=== PATIENT | female | born 1940 | race Caucasian/White ===

== ENCOUNTER → 2016-12-05 | Outpatient (CLI) | payer MEDICARE, OTHER ==
[2016-12-05 14:44] LABS: ABSOLUTE BASOPHILS # (AUTO) 0.1 10^3/uL (0.0-0.2); ABSOLUTE EOSINOPHILS # (AUTO) 0.5 10^3/uL (0.0-0.6); ABSOLUTE LYMPHOCYTES (AUTO) 2.5 10^3/uL (0.5-4.7); ABSOLUTE MONOCYTES (AUTO) 0.8 10^3/uL (0.1-1.4); ABSOLUTE NEUT (AUTO) 5.5 10^3/uL (1.7-8.2); BASOPHILS % (AUTO) 0.9 % (0-2); EOSINOPHILS % (AUTO) 5.8 % (0-6); HEMATOCRIT 33.4 % (36.0-47.0); HEMOGLOBIN 11.4 g/dL (12.0-15.5); HGB HCT DIFFERENCE 0.8; LYMPHOCYTES % (AUTO) 26.2 % (13-45); MEAN CORPUSCULAR HEMOGLOBIN 29.6 pg (27.0-33.4); MEAN CORPUSCULAR VOLUME 87 fl (80-97); MONOCYTES % (AUTO) 8.8 % (3-13); RED BLOOD COUNT 3.84 10^6/uL (3.72-5.28); RED CELL DISTRIBUTION WIDTH 13.7 % (11.5-14.0); SEGMENTED NEUTROPHILS % (AUTO) 58.3 % (42-78); WHITE BLOOD COUNT 9.4 10^3/uL (4.0-10.5)
[2016-12-05 14:45] LABS: APPEARANCE,URINE CLEAR; BILIRUBIN,URINE NEGATIVE (NEGATIVE); GLUCOSE, URINE NEGATIVE (NEGATIVE); KETONES,URINE NEGATIVE (NEGATIVE); LEUKOCYTE ESTERASE,URINE SMALL (NEGATIVE); NITRITE,URINE NEGATIVE (NEGATIVE); PROTEIN,URINE NEGATIVE (NEGATIVE); URINE SPECIFIC GRAVITY 1.006; UROBILINOGEN,URINE NEGATIVE mg/dL (<2.0)
[2016-12-05 14:50] LABS: PARTIAL THROMBOPLASTIN TIME 30.9 SEC (23.5-35.8); PROTHROMBIN TIME 12.7 SEC (11.4-15.4)
== END ==
LOC: OD 12:53
PROVIDERS: ATTEND Student in an Organized Health Care Education/Training Program
DX: Z51.81 Encounter for therapeutic drug level monitoring (principal); Z79.01 Long term (current) use of anticoagulants
CPT/HCPCS: 36415; 81001; 85025; 85610; 85730

== ENCOUNTER 2016-12-10 08:42 | Day surgery (SDC) | payer MEDICARE, OTHER ==
[~2016-12-10 08:42] MED LIST: CEFAZOLIN 1 GM/D5W RTU 1 GM/50 ML RTUPB IV PRN; RINGERS SOLUTION,LACTATED 1,000 ML IV PRN
[2016-12-10] MEDS ORDERED: LIDOCAINE 1% INJ-PF (10 MG/ML) 30 ML SDV ONE (09:22)
[2016-12-10 09:28] LABS: HEMATOCRIT 35.8 % (36.0-47.0); HEMOGLOBIN 11.8 g/dL (12.0-15.5); HGB HCT DIFFERENCE -0.4; MEAN CORPUSCULAR HGB CONC 33.1 g/dL (32.0-36.0); MEAN CORPUSCULAR VOLUME 88 fl (80-97); RED BLOOD COUNT 4.08 10^6/uL (3.72-5.28); RED CELL DISTRIBUTION WIDTH 13.2 % (11.5-14.0); WHITE BLOOD COUNT 7.2 10^3/uL (4.0-10.5)
[2016-12-10 09:40] LABS: APPEARANCE,URINE CLEAR; BILIRUBIN,URINE NEGATIVE (NEGATIVE); GLUCOSE, URINE NEGATIVE (NEGATIVE); KETONES,URINE NEGATIVE (NEGATIVE); LEUKOCYTE ESTERASE,URINE TRACE (NEGATIVE); NITRITE,URINE NEGATIVE (NEGATIVE); PROTEIN,URINE NEGATIVE (NEGATIVE); URINE SPECIFIC GRAVITY 1.009; UROBILINOGEN,URINE NEGATIVE mg/dL (<2.0)
[2016-12-10] MEDS ORDERED: CEFAZOLIN 1 GM/D5W RTU 1 GM/50 ML RTUPB IV ONE (09:52)
[2016-12-10 10:24] LABS: PARTIAL THROMBOPLASTIN TIME 29.3 SEC (23.5-35.8)
[2016-12-10 10:28] LABS: PROTHROMBIN TIME 13.4 SEC (11.4-15.4)
[2016-12-10] MEDS ORDERED: MIDAZOLAM 2 MG/2 ML INJ ONE (10:57)
[2016-12-10] MEDS ORDERED: KETAMINE HCL INJ 500 MG/10 ML VIAL ONE (10:57)
[2016-12-10] MEDS ORDERED: FENTANYL CITRATE INJ/PF 100 MCG/2 ML AMPUL ONE ×2 (10:57→12:52)
[2016-12-10] MEDS ORDERED: PROPOFOL INJ 200 MG/20 ML VIAL IV ONE (10:58)
[2016-12-10] MEDS ORDERED: EPHEDRINE SULFATE INJ 50 MG/1 ML AMPULE ONE (10:58)
[2016-12-10] MEDS ORDERED: PROPRANOLOL HCL 40 MG TABLET PO ONE (11:00)
[2016-12-10] MEDS ORDERED: FAMOTIDINE INJ/PF 20 MG/2 ML SDV IV ONE ×3 (11:30→11:31)
[2016-12-10] MEDS ORDERED: PROMETHAZINE HCL INJ 25 MG/1 ML VIAL IV PRN (12:14)
[2016-12-10] MEDS ORDERED: DIPHENHYDRAMINE HCL 50 MG/ML VIAL IV PRN (12:14)
[2016-12-10] MEDS ORDERED: MORPHINE SULFATE 10 MG/ML INJ IV PRN (12:14)
[2016-12-10] MEDS ORDERED: FENTANYL CITRATE INJ/PF 100 MCG/2 ML AMPUL IV PRN ×3 (12:14)
[2016-12-10] MEDS ORDERED: OXYCODONE-ACETAMINOPHEN 5-325 MG TABLET PO PRN (12:51)
--- NOTE | 2016-12-10 12:58 | OPERATIVE REPORT E ---
Operative Report NAME: DAKOTA KHAN : 1940 AGE: 76Y DATE OF SURGERY: 12/10/2016 ROOM: PREOPERATIVE DIAGNOSIS: L1 vertebral compression fracture. POSTOPERATIVE DIAGNOSIS: L1 vertebral compression fracture. PROCEDURE: Balloon kyphoplasty. SURGEON: JANAE SCHWARZ M.D. ELECTRONIC TRANSACTION IMPLEMENTER: None. ANESTHESIA: MAC. COMPLICATIONS: None. PROCEDURE IN DETAIL: After obtaining informed consent advising the patient of the risks and benefits, including serious neurological injury, bleeding, infection, paralysis, allergic reaction, , and failure to adequately treat pain, she was taken to the operating room suite. She was placed comfortably in the prone position as determined by Anesthesia. She was prepped and draped. A C-arm was brought in for lateral and AP visualizations and draped appropriately. Beginning at the L1 level, using a right peripedicular approach, a suitable skin entry site was identified and anesthetized with 1% lidocaine. A small incision was made. The Express trocar was then advanced under serial fluoroscopy views in AP and lateral position, entering in the peripedicular approach and medializing after passing into the vertebral body to be positioned medial to the medial pedicular wall. The drill was then placed and removed followed by the balloon. This procedure was then repeated using the left peripedicular approach at the same vertebral levels. Once the balloons were adequately inflated cement was mixed, and using the filler tubes beginning at the L1 level, 2.4 mL of mixture was placed on the right side and 1 mL at the left. Intermittent fluoroscopy was used to confirm appropriate spread of cement. Stylettes were placed into the trocar after the filler tubes were all removed. Appropriate spread was obtained under serial fluoroscopy. The cement was allowed to harden prior to removing the trocars. The region was then cleansed. Sterile dressing was placed. The patient was taken to the PACU for further postoperative care and monitoring and will return to the clinic tomorrow for wound check. DICTATING PHYSICIAN: JANAE SCHWARZ M.D. [id number] PHY#: [id number] ID: [id number] JOB#: [id number] ACCT: [id number] cc:JANAE SCHWARZ M.D. > MTDD
[2016-12-10] MEDS ORDERED: CEFAZOLIN INJ 1 GM VIAL ONE (13:02)
[2016-12-10] MEDS ORDERED: ONDANSETRON HCL INJ/PF 4 MG/2 ML SDV ONE (15:27)
[2016-12-10] MEDS ORDERED: LIDOCAINE 2% INJ-PF (20 MG/ML) 10 ML AMPUL ONE (15:27)
--- NOTE | 2016-12-10 16:19 | RADIOLOGY REPORT (SQ) ---
EXAM DESCRIPTION: L SPINE 2 VIEWS; NO CHG FLUORO COMPLETED DATE/TIME: 12/10/2016 2:39 pm REASON FOR STUDY: KYPHOPLASTY L1 ASSISTED WITH FLUORO IN OR S32.010A WEDGE COMPRESSION FRACTURE OF FIRST LUMBAR VERTEBRA COMPARISON: None. FLUOROSCOPY TIME: 2.7 minutes 12 digital radiographic images saved to PACS. TECHNIQUE: Intra-operative images acquired during surgical procedure to evaluate progress. NUMBER OF IMAGES: Cine fluoroscopic images. LIMITATIONS: None. FINDINGS: Multiple fluoro images submitted during kyphoplasty in the OR. IMPRESSION: Intra procedural imaging and fluoro COMMENT: Quality ID 145: Final reports for procedures using fluoroscopy that document radiation exp osure indices, or exposure time and number of fluorographic images (if radiation exposure indices are not available) Please consult full operative report of the attending physician for description of the procedure. TECHNICAL DOCUMENTATION: JOB ID: [id number] [employer]- All Rights Reserved
[2016-12-10 16:32] VITALS: BP 139/80
== END 2016-12-10 16:15 | disposition home or self-care (01) ==
LOC: OROUT 08:42
PROVIDERS: ATTEND Student in an Organized Health Care Education/Training Program
PROC: 0QU03JZ Supplement Lumbar Vertebra with Synthetic Substitute, Percutaneous Approach (ICD-10-PCS; 2016-12-10)
PROC: 0QS03ZZ Reposition Lumbar Vertebra, Percutaneous Approach (ICD-10-PCS; principal; 2016-12-10 11:15)
DX: S32.010A Wedge compression fracture of first lumbar vertebra, initial encounter for closed fracture (principal); X58.XXXA Exposure to other specified factors, initial encounter; M54.16 Radiculopathy, lumbar region; E78.5 Hyperlipidemia, unspecified; I10 Essential (primary) hypertension; Z79.899 Other long term (current) drug therapy; Z79.82 Long term (current) use of aspirin; Z79.891 Long term (current) use of opiate analgesic; Z79.01 Long term (current) use of anticoagulants; J45.909 Unspecified asthma, uncomplicated; Z85.9 Personal history of malignant neoplasm, unspecified
CPT/HCPCS: 36415; 84132; 85027; 85610; 85730; 81001; 72100; 22514; Q9966; J2250; J0690 ×2; J3010; J3490 ×2; A9270; J2405; J2704; S0028; 1936

== ENCOUNTER 2018-02-16 07:16 | Day surgery (SDC) | payer MEDICARE, OTHER ==
[2018-02-10 11:36] LABS: ABSOLUTE BASOPHILS # (AUTO) 0.1 10^3/uL (0.0-0.2); ABSOLUTE EOSINOPHILS # (AUTO) 0.2 10^3/uL (0.0-0.6); ABSOLUTE LYMPHOCYTES (AUTO) 2.7 10^3/uL (0.5-4.7); ABSOLUTE MONOCYTES (AUTO) 0.6 10^3/uL (0.1-1.4); ABSOLUTE NEUT (AUTO) 5.6 10^3/uL (1.7-8.2); BASOPHILS % (AUTO) 0.7 % (0-2); EOSINOPHILS % (AUTO) 2.4 % (0-6); HEMATOCRIT 36.8 % (36.0-47.0); HEMOGLOBIN 12.5 g/dL (12.0-15.5); LYMPHOCYTES % (AUTO) 29.2 % (13-45); MEAN CORPUSCULAR HEMOGLOBIN 29.4 pg (27.0-33.4); MEAN CORPUSCULAR HGB CONC 34.1 g/dL (32.0-36.0); MEAN CORPUSCULAR VOLUME 86 fl (80-97); MONOCYTES % (AUTO) 6.8 % (3-13); PLATELET COUNT 215 10^3/uL (150-450); RED BLOOD COUNT 4.26 10^6/uL (3.72-5.28); RED CELL DISTRIBUTION WIDTH 14.5 % (11.5-14.0); SEGMENTED NEUTROPHILS % (AUTO) 60.9 % (42-78); TOTAL CELLS COUNTED % (AUTO) 100 %; WHITE BLOOD COUNT 9.2 10^3/uL (4.0-10.5)
[2018-02-10 11:45] LABS: INTERNATIONAL RATION (INR) 0.97; PROTHROMBIN TIME 13.4 SEC (11.4-15.4)
[2018-02-10 11:51] LABS: APPEARANCE,URINE SLIGHTLY-CLOUDY; BILIRUBIN,URINE NEGATIVE (NEGATIVE); COLOR,URINE YELLOW; GLUCOSE, URINE NEGATIVE (NEGATIVE); KETONES,URINE NEGATIVE (NEGATIVE); LEUKOCYTE ESTERASE,URINE SMALL (NEGATIVE); NITRITE,URINE NEGATIVE (NEGATIVE); PROTEIN,URINE NEGATIVE (NEGATIVE); UROBILINOGEN,URINE NEGATIVE mg/dL (<2.0)
[~2018-02-16 07:16] MED LIST changes: +LACTATED RINGERS 1000 ML IV PRN; +LIDOCAINE 0.5% INJ-PF (5 MG/ML) 50 ML SDV SUBCUT PRN; -RINGERS SOLUTION,LACTATED 1,000 ML IV PRN
[2018-02-16] MEDS ORDERED: CEFAZOLIN 1 GM/D5W RTU 1 GM/50 ML RTUPB IV ONE (07:25)
[2018-02-16] MEDS ORDERED: LIDOCAINE 1% INJ-PF (10 MG/ML) 30 ML SDV ONE (07:35)
[2018-02-16] MEDS ORDERED: ONDANSETRON HCL INJ/PF 4 MG/2 ML SDV ONE (08:09)
[2018-02-16] MEDS ORDERED: FAMOTIDINE INJ/PF 20 MG/2 ML SDV IV ONE (08:09)
[2018-02-16 08:16] LABS: ANION GAP 9 (5-19); BLOOD UREA NITROGEN 14 mg/dL (7-20); CALCIUM 9.7 mg/dL (8.4-10.2); CARBON DIOXIDE 29 mmol/L (22-30); CHLORIDE 104 mmol/L (98-107); GLUCOSE 111 mg/dL (75-110); POTASSIUM 3.9 mmol/L (3.6-5.0); SODIUM 141.8 mmol/L (137-145)
[2018-02-16] MEDS ORDERED: MIDAZOLAM 2 MG/2 ML INJ ONE (10:03)
[2018-02-16] MEDS ORDERED: FENTANYL CITRATE INJ/PF 100 MCG/2 ML AMPUL ONE (10:03)
[2018-02-16] MEDS ORDERED: PROPOFOL INJ 200 MG/20 ML VIAL IV ONE (10:03)
[2018-02-16] MEDS ORDERED: TRIAMCINOLONE ACETONIDE INJ 40 MG/1 ML VIAL ONE (10:19)
[2018-02-16] MEDS ORDERED: ONDANSETRON HCL INJ/PF 4 MG/2 ML SDV IV PRN ×2 (10:34→11:47)
[2018-02-16] MEDS ORDERED: DIPHENHYDRAMINE HCL 50 MG/ML VIAL IV PRN (10:34)
[2018-02-16] MEDS ORDERED: FENTANYL CITRATE INJ/PF 100 MCG/2 ML AMPUL IV PRN ×3 (10:34)
[2018-02-16] MEDS ORDERED: OXYCODONE HCL IR 5 MG TABLET PO PRN (11:46)
[2018-02-16] MEDS ORDERED: OXYCODONE HCL SR 10 MG TABLET PO ONE (12:09)
--- NOTE | 2018-02-16 12:11 | OPERATIVE REPORT E ---
Operative Report NAME: DAKOTA KHAN : 1940 AGE: 77Y DATE OF SURGERY: 02/16/2018 ROOM: PREOPERATIVE DIAGNOSIS: LUMBAR SPINAL STENOSIS WITH NEUROGENIC CLAUDICATION. POSTOPERATIVE DIAGNOSIS: LUMBAR SPINAL STENOSIS WITH NEUROGENIC CLAUDICATION. OPERATION: 1. Minimally invasive lumbar decompression at L3-L4 and L4-L5. 2. Epidural access at L4-L5 with epidural steroid injection with 80 mg of Kenalog. SURGEON: MENDY SAMANIEGO M.D. INTRAVENOUS ANTIBIOTICS: 1 gram Ancef given prior to incision. INTRAVENOUS FLUIDS: 500 mL of balanced crystalloid solution. COMPLICATIONS: Inadvertent dural puncture to L4-5 during epidural access. Myelogram noted. FINDINGS: Excellent removal of ligamentum flavum and tissue from the stenotic space of L3-L4 and L4-L5. SPECIMENS REMOVED: Ligamentum flavum which was discarded. INDICATIONS: The patient is a pleasant, 77-year-old female with lumbar spinal stenosis and neurogenic claudication. She has undergone a series of epidural injections with good result, though very short-lived. She continues to have issues with neurogenic claudication. She was determined to be a candidate for MILD. Risks and benefits were discussed with the patient in detail including but not limited to bleeding, bruising, infection, injury to nerves, arteries, veins, loss of bowel or bladder function, paralysis, headache, and potentially even . The patient expressed understanding. The patient agreed to proceed. OPERATIVE REPORT: The patient was accompanied by anesthesia staff to the operative suite. She was placed in prone position. All pressure points were checked and padded. Standard ASA lines and monitors were applied. The patient was prepped in sterile fashion using chlorhexidine solution and Ioban drape. The C-arm was also prepped into the field. AP and oblique fluoroscopic guidance was utilized to visualize the L3-4 and L4-5 interspace. The skin overlying the L4-5 interspace in the midline was marked and anesthetized with 1% lidocaine. A 17-gauge Tuohy was advanced under intermittent AP and oblique fluoroscopic guidance to the interlaminar space of L4-5. Loss of resistance was obtained using normal saline. Notably, aspiration was negative at this point. Contrast was injected and a myelogram was appreciated. As such, the needle was determined to be intradural. It was slightly withdrawn with epidural spread appreciated. At this juncture, an incision site was marked over the left S1 pedicle. The skin was anesthetized with 1% lidocaine and deeper tissues were infiltrated using the same with a 3.5 inch 25-gauge spinal needle. The trocar provided by the MILD kit was advanced under intermittent oblique fluoroscopic guidance to the L4-5 interspace between the lamina. This was secured using a securing device and a depth gauge was also placed over the trocar at 15 mm. A trocar was advanced under continuous fluoroscopic guidance and was utilized to remove segments of bone and ligament from the lamina, taking great care to not violate the epidural space. Once this was completed, a tissue sculptor was likewise utilized to remove further ligamentum flavum. At this point, after excellent tissue removal was noted, the trocar was slightly withdrawn and advanced to the L3-4 interspace where the procedure was performed in the exact same fashion using the bone rongeurs followed by the tissue sculptor. Attention was turned to the contralateral side and the procedure was performed in the exact same fashion on this side. Then 80 mg of Kenalog was injected into the epidural space following the procedure. All instrumentation was removed. Steri-Strips were placed and dressings were placed. The patient was accompanied to PACU in stable condition. She will be followed up in 24 hours for postop with a doctor with pain management. DICTATING PHYSICIAN: MENDY SAMANIEGO M.D. [id number] PHY#: [id number] ID: [id number] JOB#: [id number] ACCT: [id number] cc:MENDY SAMANIEGO M.D. >
[2018-02-16 13:28] VITALS: BP 144/53
--- NOTE | 2018-02-16 13:53 | RADIOLOGY REPORT (SQ) ---
EXAM DESCRIPTION: L SPINE 2 VIEWS; NO CHG FLUORO COMPLETED DATE/TIME: 02/16/2018 1:34 pm REASON FOR STUDY: MINIMALLY INVASIVE LUMBAR DECOMPRESSION ASST WITH FLUORO IN OR G89.4 CHRONIC PAIN SYNDROME M48.07 SPINAL STENOSIS, LUMBOSACRAL REGION Z79.01 MCC (CURRENT) USE OF ANTICOAGULAN TS COMPARISON: None. FLUOROSCOPY TIME: 11 minutes total fluoro time 17 digital radiographic images saved to PACS. TECHNIQUE: Intra-operative images acquired during surgical procedure to evaluate progress. NUMBER OF IMAGES: 17 digital images LIMITATIONS: None. FINDINGS: Intra procedural imaging and fluoro during procedure performed by Dr. Morrell. Please see her operative report for further details IMPRESSION: Intra procedural imaging and fluoro. 11 minutes total fluoro time COMMENT: Quality ID 145: Final reports for procedures using fluoroscopy that document radiation exp osure indices, or exposure time and number of fluorographic images (if radiation exposure indices are not available) Please consult full operative report of the attending physician for description of the procedure. TECHNICAL DOCUMENTATION: JOB ID: [id number] [employer]- All Rights Reserved Reading location - IP/workstation name: [email or web address]
--- NOTE | 2018-02-16 13:53 | RADIOLOGY REPORT (SQ) ---
EXAM DESCRIPTION: L SPINE 2 VIEWS; NO CHG FLUORO COMPLETED DATE/TIME: 02/16/2018 1:34 pm REASON FOR STUDY: MINIMALLY INVASIVE LUMBAR DECOMPRESSION ASST WITH FLUORO IN OR G89.4 CHRONIC PAIN SYNDROME M48.07 SPINAL STENOSIS, LUMBOSACRAL REGION Z79.01 HALFWAY (CURRENT) USE OF ANTICOAGULAN TS COMPARISON: None. FLUOROSCOPY TIME: 11 minutes total fluoro time 17 digital radiographic images saved to PACS. TECHNIQUE: Intra-operative images acquired during surgical procedure to evaluate progress. NUMBER OF IMAGES: 17 digital images LIMITATIONS: None. FINDINGS: Intra procedural imaging and fluoro during procedure performed by Dr. Morrell. Please see her operative report for further details IMPRESSION: Intra procedural imaging and fluoro. 11 minutes total fluoro time COMMENT: Quality ID 145: Final reports for procedures using fluoroscopy that document radiation exp osure indices, or exposure time and number of fluorographic images (if radiation exposure indices are not available) Please consult full operative report of the attending physician for description of the procedure. TECHNICAL DOCUMENTATION: JOB ID: [id number] [employer]- All Rights Reserved Reading location - IP/workstation name: [facility] [email or web address]
--- NOTE | 2018-02-16 15:48 | EKG REPORT ---
SEVERITY:- ABNORMAL ECG - SINUS RHYTHM MULTIPLE VENTRICULAR PREMATURE COMPLEXES : Confirmed by: Jennifer Younger MD 16-Feb-2018 15:47:08
== END 2018-02-16 13:12 | disposition home or self-care (01) ==
LOC: OROUT 07:16
PROVIDERS: ATTEND Pain Medicine Interventional Pain Medicine
DX: M48.07 Spinal stenosis, lumbosacral region (principal); Z00.6 Encounter for examination for normal comparison and control in clinical research program; M51.27 Other intervertebral disc displacement, lumbosacral region; M51.37 Other intervertebral disc degeneration, lumbosacral region; M47.897 Other spondylosis, lumbosacral region; G89.4 Chronic pain syndrome; E78.5 Hyperlipidemia, unspecified; I10 Essential (primary) hypertension; Z96.611 Presence of right artificial shoulder joint; K21.9 Gastro-esophageal reflux disease without esophagitis; M19.90 Unspecified osteoarthritis, unspecified site; Z79.899 Other long term (current) drug therapy; Z79.1 Long term (current) use of non-steroidal anti-inflammatories (NSAID); Z85.3 Personal history of malignant neoplasm of breast; Z79.891 Long term (current) use of opiate analgesic
CPT/HCPCS: 0275T; 36415 ×2; 85025; 85610; 85730; 80048; 81001; 72100; 93005; 93010; Q9966; J2250; J0690; J3010; J3490 ×2; A9270; J2405; J2704; S0028; 630

== ENCOUNTER 2018-12-13 07:55 | Day surgery (SDC) | payer MEDICARE, OTHER ==
[2018-12-09 13:28] LABS: HEMATOCRIT 33.3 % (36.0-47.0); MEAN CORPUSCULAR HEMOGLOBIN 28.9 pg (27.0-33.4); MEAN CORPUSCULAR HGB CONC 33.2 g/dL (32.0-36.0); MEAN CORPUSCULAR VOLUME 87 fl (80-97); PLATELET COUNT 253 10^3/uL (150-450); RED BLOOD COUNT 3.82 10^6/uL (3.72-5.28); RED CELL DISTRIBUTION WIDTH 15.8 % (11.5-14.0)
[2018-12-09 13:34] LABS: INTERNATIONAL RATION (INR) 1.05; PROTHROMBIN TIME 13.7 SEC (11.4-15.4)
[2018-12-09 13:35] LABS: PARTIAL THROMBOPLASTIN TIME 30.4 SEC (23.5-35.8)
[~2018-12-13 07:55] MED LIST changes: -LACTATED RINGERS 1000 ML IV PRN; -LIDOCAINE 0.5% INJ-PF (5 MG/ML) 50 ML SDV SUBCUT PRN
[2018-12-13] MEDS ORDERED: CEFAZOLIN 1 GM/D5W RTU 1 GM/50 ML RTUPB IV ONE (08:19)
[2018-12-13] MEDS ORDERED: LIDOCAINE 1% INJ-PF (10 MG/ML) 30 ML SDV ONE (08:49)
[2018-12-13] MEDS ORDERED: KETAMINE HCL INJ 500 MG/10 ML VIAL ONE (09:30)
[2018-12-13] MEDS ORDERED: PROPOFOL INJ 200 MG/20 ML VIAL IV ONE (09:30)
[2018-12-13] MEDS ORDERED: FENTANYL CITRATE INJ/PF 100 MCG/2 ML AMPUL ONE (09:30)
[2018-12-13 09:41] LABS: APPEARANCE,URINE HAZY; BILIRUBIN,URINE NEGATIVE (NEGATIVE); COLOR,URINE STRAW; GLUCOSE, URINE NEGATIVE (NEGATIVE); KETONES,URINE NEGATIVE (NEGATIVE); LEUKOCYTE ESTERASE,URINE LARGE (NEGATIVE); NITRITE,URINE NEGATIVE (NEGATIVE); PROTEIN,URINE 30 mg/dL (NEGATIVE)
[2018-12-13 09:42] LABS: AMORPHOUS SEDIMENT,URINE TRACE /HPF
[2018-12-13 09:43] LABS: URINE SPECIFIC GRAVITY 1.011
[2018-12-13] MEDS ORDERED: FENTANYL CITRATE INJ/PF 100 MCG/2 ML AMPUL IV PRN ×3 (11:00)
[2018-12-13] MEDS ORDERED: DIPHENHYDRAMINE HCL 50 MG/ML VIAL IV PRN (11:00)
[2018-12-13] MEDS ORDERED: MEPERIDINE HCL/PF INJ 25 MG/1 ML DISP.SYRIN IV PRN (11:00)
[2018-12-13] MEDS ORDERED: MORPHINE SULFATE 10 MG/ML INJ IV PRN (11:00)
[2018-12-13] MEDS ORDERED: PROMETHAZINE HCL INJ 25 MG/1 ML VIAL IV PRN (11:00)
[2018-12-13] MEDS ORDERED: CEFAZOLIN INJ 1 GM VIAL ONE (11:02)
[2018-12-13] MEDS ORDERED: OXYCODONE-ACETAMINOPHEN 5-325 MG TABLET PO PRN (12:24)
[2018-12-13] MEDS ORDERED: ONDANSETRON HCL INJ/PF 4 MG/2 ML SDV IV PRN (12:25)
[2018-12-13] MEDS ORDERED: OXYCODONE-ACETAMINOPHEN 5-325 MG TABLET ONE (12:50)
[2018-12-13 14:08] VITALS: BP 134/76
--- NOTE | 2018-12-13 14:41 | Operative Report ---
Operative Report DATE OF SURGERY: 12/13/18 PREOPERATIVE DIAGNOSIS: Lumbar vertebral compression fracture of the L3. POSTOPERATIVE DIAGNOSIS: same OPERATION: Percutaneous balloon kyphoplasty of L3 SURGEON: MENDY SAMANIEGO TISSUE REMOVED OR ALTERED: none COMPLICATIONS: none ESTIMATED BLOOD LOSS: minimal INTRAOPERATIVE FINDINGS: Excellent spread of methylmethacralate bone cement throughout the L3 vertebral body without extravasation. PROCEDURE: > DESCRIPTION OF PROCEDURE: > The patient was taken to the preoperative suite, informed consent was obtained from the patient, and all appropriate preoperative documentation was completed. Intravenous access was obtained and the patient was moved to the operating room. A time out was performed with the patient, nurse and attending physician present in the operative suite. Prophylactic antibiotics were administered in the form of Ancef 1g preoperatively and less than one hour before incision. The patient was positioned prone and all pressure points were checked while the patient was awake. Monitored anesthesia care was subsequently induced by the anesthesia care provider. > The L3 vertebral body was identified with fluoroscopic guidance. The skin overlying the target area was prepped with chlorhexidine x 3 and sterilely draped in the usual fashion maintaining meticulous sterile technique. Local anesthesia was obtained with a total of 3 ml of preservative free 1% Lidocaine. A stab incision was made 1 cm lateral of the lateral border of each pedicle at the level of the target vertebral body. A 10 gauge trocar was introduced safely through each pedicle just inside the target vertebral body. The stylet of the trocar was removed and a working cannula was left in place. A biopsy was obtained through each trocar. A drill was then inserted through both working cannulas, advanced under lateral fluoroscopic imaging, to a point just posterior to the anterior vertebral body wall. The drill was removed and balloons (one in each pedicle) were inserted through the working cannula stopping posterior to the anterior vertebral body wall. The balloons were inflated with radiopaque contrast dye in .5 mL increments. Lateral fluoroscopic images were obtained to confirm balloon inflation did not breach the superior or inferior endplates. A/P fluoroscopic images were obtained periodically to confirm that the lateral gonzalez were not breached. Inflation of the balloons continued until the desired fracture reduction was achieved. PMMA bone cement was prepared and filled in bone filler cannulas. The balloons were deflated and removed. The cement filled cannulas were inserted through the working cannula to the anterior portion of the vertebral body. The cement cannula plungers were used to push .2 mL increments of cement into the vertebral body. Lateral fluoroscopic images were obtained at .2 mL increments to verify that the cement did not extravasate. A/P fluoroscopic views were taken at incrementally to verify that the cement did not extravasate laterally. Safe cement fill continued until the anterior 2/3 and the bottom of the vertebral body was filled. A total of 2.8mL was injected from the right pedicle and 2.6mL from the left pedicle. The bone cement cannulas were removed. Lateral fluoroscopic imaging confirmed that no cement migrated posteriorly up the working cannula. The working cannulas were removed and pressure was applied to the incision sites until adequate hemostasis was assured. The incision sites were then copiously irrigated with bacitracin solution. Steri strips were used to reapproximate the skin and each site was covered with a sterile adhesive bandage. > COUNTS: > Final sponge and needle counts were correct. > > EQUIPMENT USED: > The following [employer] products were used: > * No surgery found * > > OPERATING ROOM DISPOSITION: > The patient was taken from the operating room to the recovery room in stable condition. > > FINAL DISPOSITION: > The patient was discharged from the PACU after appropriate discharge criteria were met. > > POST OPERATIVE PRESCRIPTION: > > > FOLLOW UP: > The patient is to follow up in clinic
--- NOTE | 2018-12-13 16:09 | RADIOLOGY REPORT (SQ) ---
EXAM DESCRIPTION: L SPINE 2 VIEWS; NO CHG FLUORO COMPLETED DATE/TIME: 12/13/2018 3:57 pm REASON FOR STUDY: KYPHOPLASTY LUMBAR SPINE ASST WITH FLUORO IN OR S32.010A WEDGE COMPRESSION FRACTU RE OF FIRST LUMBAR VERTEBRA D68.9 COAGULATION DEFECT, UNSPECIFIED COMPARISON: None. FLUOROSCOPY TIME: 3.9 minutes. 56 images saved to PACS. TECHNIQUE: Intra-operative images acquired during surgical procedure to evaluate progress. NUMBER OF IMAGES: 56 images. LIMITATIONS: None. FINDINGS: Images acquired during kyphoplasty procedure. IMPRESSION: IMAGE(S) OBTAINED DURING PROCEDURE. COMMENT: Quality ID 145: Final reports for procedures using fluoroscopy that document radiation exp osure indices, or exposure time and number of fluorographic images (if radiation exposure indices are not available) Please consult full operative report of the attending physician for description of the procedure. TECHNICAL DOCUMENTATION: JOB ID: [id number] [employer]- All Rights Reserved Reading location - IP/workstation name: [email or web address]
--- NOTE | 2018-12-13 16:09 | RADIOLOGY REPORT (SQ) ---
EXAM DESCRIPTION: L SPINE 2 VIEWS; NO CHG FLUORO COMPLETED DATE/TIME: 12/13/2018 3:57 pm REASON FOR STUDY: KYPHOPLASTY LUMBAR SPINE ASST WITH FLUORO IN OR S32.010A WEDGE COMPRESSION FRACTU RE OF FIRST LUMBAR VERTEBRA D68.9 COAGULATION DEFECT, UNSPECIFIED COMPARISON: None. FLUOROSCOPY TIME: 3.9 minutes. 56 images saved to PACS. TECHNIQUE: Intra-operative images acquired during surgical procedure to evaluate progress. NUMBER OF IMAGES: 56 images. LIMITATIONS: None. FINDINGS: Images acquired during kyphoplasty procedure. IMPRESSION: IMAGE(S) OBTAINED DURING PROCEDURE. COMMENT: Quality ID 145: Final reports for procedures using fluoroscopy that document radiation exp osure indices, or exposure time and number of fluorographic images (if radiation exposure indices are not available) Please consult full operative report of the attending physician for description of the procedure. TECHNICAL DOCUMENTATION: JOB ID: [id number] [employer]- All Rights Reserved Reading location - IP/workstation name: [email or web address]
== END 2018-12-13 13:00 | disposition home or self-care (01) ==
LOC: OROUT 07:55
PROVIDERS: ATTEND Pain Medicine Interventional Pain Medicine
DX: S32.010A Wedge compression fracture of first lumbar vertebra, initial encounter for closed fracture (principal); X58.XXXA Exposure to other specified factors, initial encounter; M48.062 Spinal stenosis, lumbar region with neurogenic claudication; M47.897 Other spondylosis, lumbosacral region; M54.16 Radiculopathy, lumbar region; M15.9 Polyosteoarthritis, unspecified; M51.37 Other intervertebral disc degeneration, lumbosacral region; M54.5 Low back pain; D68.9 Coagulation defect, unspecified; E78.5 Hyperlipidemia, unspecified; I10 Essential (primary) hypertension; Z85.3 Personal history of malignant neoplasm of breast; Z79.891 Long term (current) use of opiate analgesic; Z79.01 Long term (current) use of anticoagulants; Z79.899 Other long term (current) drug therapy; Z51.81 Encounter for therapeutic drug level monitoring; Z87.440 Personal history of urinary (tract) infections
CPT/HCPCS: 36415; 85027; 85610; 85730; 81001; 72100; 01936; 22514; C1713; Q9966; J0690 ×2; J3010; J3490 ×2; A9270; J2704; 1936

== ENCOUNTER 2020-02-25 20:32 | Emergency (ER) | payer MEDICARE, OTHER ==
--- NOTE | 2020-02-25 21:09 | ER Document Report ---
ED General - General Chief Complaint: Flank Pain Stated Complaint: GENERAL WEAKNESS Time Seen by Provider: 02/25/20 21:06 Primary Care Provider: ELLIOTT STORY MD [Primary Care Provider] - Follow up as needed TRAVEL OUTSIDE OF THE [place] IN LAST 30 DAYS: No - HPI Context: This is a 79-year-old female, status post appendectomy approximately 1 month ago, presenting to the emergency department complaining of left-sided flank pain, urinary frequency, oliguria, and dysuria. Patient denies fever, chills, abdominal pain, chest pain, shortness of breath, history of COVID-19 infection, loss of sense of taste or loss of sense of smell, known exposure to Covid-19 + persons or exposure to persons under investigation for COVID-19. Patient describes the dysuria as "bad" but is not able to rate it on a scale of 0-5. Patient states his symptoms are worsened when she tries to urinate and she is found no alleviating factors for her symptoms. Associated symptoms: Other - See HPI Exacerbated by: Other - See HPI Relieved by: Other - See HPI - Related Data Allergies/Adverse Reactions: No Known Allergies Allergy (Verified 12/10/18 12:24) Past Medical History - General Information source: Patient - Social History Smoking Status: Never Smoker Frequency of alcohol use: None Drug Abuse: None Lives with: Family Family History: Reviewed & Not Pertinent Patient has suicidal ideation: No Patient has homicidal ideation: No - Past Medical History Cardiac Medical History: Denies: Hx Coronary Artery Disease, Hx Heart Attack, Hx Hypertension Pulmonary Medical History: Denies: Hx Asthma, Hx Bronchitis, Hx COPD, Hx Pneumonia Neurological Medical History: Denies: Hx Cerebrovascular Accident, Hx Seizures GI Medical History: Denies: Hx Hepatitis, Hx Hiatal Hernia, Hx Ulcer Musculoskeletal Medical History: Reports Hx Arthritis - HANDS Infectious Medical History: Denies: Hx Hepatitis Past Surgical History: Reports: Hx Hysterectomy, Hx Mastectomy. Denies: Hx Open Heart Surgery, Hx Pacemaker - Immunizations Hx Diphtheria, Pertussis, Tetanus Vaccination: Yes Hx Pneumococcal Vaccination: 12/28/16 Review of Systems - Review of Systems Notes: Review of systems as below unless otherwise stated in HPI. CONSTITUTIONAL [No] fever, [No] chills. EYES [No] eye pain. ENT [No] URI symptoms, [No] sore throat, [No] ear pain. CARDIOVASCULAR [No] chest pain, [No] palpitations, [No] edema. RESPIRATORY [No] Cough, [No] SOB, [No] wheezing. GASTROINTESTINAL [No] abdominal pain, [No] nausea, [No] Diarrhea, [No] Vomiting, [No] constipation, [No] melena, [No] rectal bleeding. GENITOURINARY [+] dysuria, [+] urinary frequency, [No] hematuria, [+] urinary urgency, [No] vaginal discharge, [No] vaginal bleeding. MUSCULOSKELETAL + flank pain SKIN [No] Rash. NEUROLOGIC [No] Headache, [No] recent seizures, [No] paralysis,[No] parathesias. ENDOCRINE [No] polyuria. HEMO/LYMPATIC [No] easy brusing PSYCHIATRIC [No] depression. Physical Exam - Vital signs Vitals: Temp 99.7 F 02/25/20 20:32 - Notes Notes: CONSTITUTIONAL [Vital signs reviewed, Patient appears comfortable, Alert and oriented X 3, Normal stature.] HEAD [Atraumatic, Normocephalic.] EYES [Eyes are normal to inspection, No discharge from eyes, Extraocular muscles intact, Sclera are normal, Conjunctiva are normal.] ENT [Ears normal to inspection, Nose examination normal, Posterior pharynx normal, Mouth normal to inspection.] NECK [Normal ROM, No jugular venous distention, No meningeal signs, no carotid bruit.] RESPIRATORY CHEST [Chest is nontender, Breath sounds normal, No respiratory distress.] CARDIOVASCULAR [RRR, patient has a 3 out of 6 systolic murmur] ABDOMEN [Abdomen is nontender, No pulsatile masses, No other masses, Bowel sounds normal, No distension, No peritoneal signs, No hernias.] BACK [There is no CVA Tenderness, There is no tenderness to palpation, Normal inspection.] UPPER EXTREMITY [Inspection normal, No cyanosis, No clubbing, No edema, 2+ radial pulses.] LOWER EXTREMITY [Inspection normal, No cyanosis, No clubbing, No edema, No calf tenderness, 2+ femoral pulses.] NEURO [No focal motor deficits, No focal sensory deficits, Speech normal.] SKIN [Skin is warm, Skin is dry, Skin is normal color.] PSYCHIATRIC [Normal affect. ] Course - Re-evaluation Re-evalutation: 02/25/20 23:41 This MD attempted to get in touch with the patient's son, Geovani Hong, and [phone] to relate the results of the ED MSE, plan of treatment and plan for disposition. I was unable to reach a voicemail box and I left a message with my phone number. This MD informed the nurse taking care of the patient what the plan will be and this MD has discussed the diagnosis and plan of treatment with the patient. Emergency signs and symptoms, reasons to return to the emergency department discussed with patient. - Vital Signs Vital signs: Temp Pulse Resp BP Pulse Ox 99.7 F 02/25/20 20:32 - Laboratory Result Diagrams: 02/25/20 21:50 02/25/20 21:50 Laboratory results interpreted by me: 02/25/20 02/25/20 02/25/20 21:50 21:50 21:50 RBC 3.25 L Hgb 9.1 L Hct 26.9 L RDW 15.4 H Sodium 134.3 L Est GFR (MDRD) Non-Af 49 L Urine Protein 30 H Urine Blood SMALL H Urine Nitrite (Reflex) POSITIVE H Urine Urobilinogen 4.0 H Leukocyte Esterase Rfl LARGE H - EKG Interpretation by Me Additional EKG results interpreted by me: 02/25/20 23:42 EKG obtained on 02/25/2020 at 2316 hrs. was interpreted by this MD. Findings: Normal sinus rhythm, rate 88, normal axis, NM interval appears to be within normal limits, P waves preceding QRS complexes, QRS complexes appear narrow, QTC is 455, there are no obvious patterns of ST segment elevation, depression or reciprocal changes seen to suggest acute myocardial ischemia or infarction. There is no prior EKG available for comparison. Impression: Normal sinus rhythm with nonspecific ST segments. Discharge - Discharge Clinical Impression: Pyelonephritis of left kidney Condition: Stable Disposition: HOME, SELF-CARE Additional Instructions: Return to the Emergency Department without delay if any worse. HOME CARE INSTRUCTIONS & INFORMATION: Thank you for choosing us for your medical needs. We hope you're satisfied with the care you received. After you l eave, you must properly care for your problem and, at the same time, observe its progress. Any condition can change. Some illnesses can change rapidly over hours or days. If your condition worsens, return to the Emergency Department or see your physician promptly. ABOUT YOUR X-RAYS AND EKG'S: If you had an EKG or X-rays taken, they have been read by the Emergency Physician. The X-rays and EKG's will also be read by a Radiologist or Travel Accommodations Rater within 24 hours. If discrepancies are noted, you will be notified by telephone. Please be certain the ED has a correct telephone number & address where you can be reached. Also, realize that some fractures or abnormalities do not show up on initial X-rays. If your symptoms continue, see your physician. ABOUT YOUR LABORATORY TEST: If you had laboratory tests, the results have been reviewed by the Emergency Physician. Some test results (for example cultures) may not be available for several days. You will be contacted if any test result shows you need additional treatment. Please be certain the ED has a correct telephone number and address where you can be reached. ABOUT YOUR MEDICATIONS: You will receive instructions on how to take your medicine on the prescription label you receive. Additional information may be provided by the Pharmacy. If you have questions afterwards, call the ED for clarification or further instructions. Some prescribed medications may cause drowsiness. Do not perform tasks such as driving a car or operating machinery without consulting your Pharmacist. If you feel you need a refill of pain medication, your condition will need re-evaluation. Please do not call for a refill of any medication. ABOUT YOUR SIGNATURE: Signature of this document acknowledges to followin. Understanding that you received emergency treatment and that you may be released before al medical problems are known or treated. Please be certain the ED has a correct phone number & address where you can be reached. 2. Acknowledgement that you will arrange for follow-up care as recommended. 3. Authorization for the Emergency Physician to provide information to your follow-up Physician in order to maximize your care. AT ANY TIME, IF YOUR SYMPTOMS CHANGE SIGNIFICANTLY OR WORSEN OR YOU DEVELOP NEW SYMPTOMS, RETURN TO THE EMERGENCY DEPARTMENT IMMEDIATELY FOR RE-EVALUATION. OUR GOAL IS TO PROVIDE EXCELLENT MEDICAL CARE! WE HOPE THAT WE HAVE MET YOUR EXPECTATIONS DURING YOUR EMERGENCY DEPARTMENT VISIT AND THAT YOU FEEL YOU HAVE RECEIVED EXCELLENT CARE! Pyelonephritis Your evaluation shows evidence of pyelonephritis. This is an infection in the kidney. Typical symptoms are fever, pain in the flank, pain on urination, and frequent urination. Many cases of pyelonephritis can be treated at home. Hospital care may be necessary for patients who are very ill, or elderly or . Pyelonephritis is treated with antibiotics. Be sure to take all the medication as prescribed. Drink plenty of liquids (about three quarts per day). You may take acetaminophen for fever. You should feel significantly improved within two days. You should have a recheck of your urine in about one week to insure that th e infection is gone. Return for a re-examination if your symptoms worsen in any way -- such as high fever, shaking chills, severe weakness or dizziness, severe pain, or inability to pass your urine. Prescriptions: Ondansetron [Zofran Odt 4 mg Tablet] 1 tab PO Q8HP PRN #15 tab.rapdis PRN Reason: For Nausea/Vomiting Cefdinir 300 mg PO BID 10 Days #20 capsule Referrals: ELLIOTT STORY MD [Primary Care Provider] - Follow up as needed
[2020-02-25] MEDS ORDERED: NORMAL SALINE 500 ML IV ONE (21:28)
[2020-02-25 22:38] LABS: ABSOLUTE BASOPHILS # (AUTO) 0.1 10^3/uL (0.0-0.2); ABSOLUTE EOSINOPHILS # (AUTO) 0.1 10^3/uL (0.0-0.6); ABSOLUTE LYMPHOCYTES (AUTO) 1.8 10^3/uL (0.5-4.7); ABSOLUTE MONOCYTES (AUTO) 0.7 10^3/uL (0.1-1.4); ABSOLUTE NEUT (AUTO) 7.5 10^3/uL (1.7-8.2); BASOPHILS % (AUTO) 0.5 % (0-2); EOSINOPHILS % (AUTO) 0.9 % (0-6); HEMATOCRIT 26.9 % (36.0-47.0); HEMOGLOBIN 9.1 g/dL (12.0-15.5); LYMPHOCYTES % (AUTO) 17.6 % (13-45); MEAN CORPUSCULAR HEMOGLOBIN 28.1 pg (27.0-33.4); MEAN CORPUSCULAR HGB CONC 33.9 g/dL (32.0-36.0); MEAN CORPUSCULAR VOLUME 83 fl (80-97); MONOCYTES % (AUTO) 6.9 % (3-13); PLATELET COUNT 328 10^3/uL (150-450); RED BLOOD COUNT 3.25 10^6/uL (3.72-5.28); RED CELL DISTRIBUTION WIDTH 15.4 % (11.5-14.0); SEGMENTED NEUTROPHILS % (AUTO) 74.1 % (42-78); TOTAL CELLS COUNTED % (AUTO) 100 %; WHITE BLOOD COUNT 10.1 10^3/uL (4.0-10.5)
[2020-02-25 22:51] LABS: APPEARANCE,URINE SLIGHTLY-CLOUDY; BILIRUBIN,URINE NEGATIVE (NEGATIVE); COLOR,URINE YELLOW; GLUCOSE, URINE NEGATIVE (NEGATIVE); KETONES,URINE NEGATIVE (NEGATIVE); PROTEIN,URINE 30 mg/dL (NEGATIVE)
[2020-02-25] MEDS ORDERED: CEFTRIAXONE INJ 1000 MG VIAL IV ONE (23:08)
[2020-02-25 23:14] LABS: ALBUMIN 3.6 g/dL (3.5-5.0); ALKALINE PHOSPHATASE 65 U/L (38-126); ANION GAP 7 (5-19); ASPARTATE AMINO TRANSFERASE 20 U/L (14-36); BILIRUBIN,DIRECT 0.1 mg/dL (0.0-0.4); BILIRUBIN,TOTAL 0.8 mg/dL (0.2-1.3); BLOOD UREA NITROGEN 12 mg/dL (7-20); CALCIUM 9.5 mg/dL (8.4-10.2); CARBON DIOXIDE 26 mmol/L (22-30); CHLORIDE 101 mmol/L (98-107); GLUCOSE 95 mg/dL (75-110); POTASSIUM 4.5 mmol/L (3.6-5.0); TOTAL PROTEIN 6.6 g/dL (6.3-8.2)
[2020-02-26] MEDS ORDERED: ONDANSETRON HCL INJ/PF 4 MG/2 ML SDV IV ONE (00:07)
[2020-02-26 00:48] VITALS: BP 116/56
--- NOTE | 2020-02-26 08:44 | EKG REPORT ---
SEVERITY:- ABNORMAL ECG - SINUS RHYTHM POSSIBLE OLD ANTEROSEPTAL [place] : Confirmed by: Balwinder Gillette MD 26-Feb-2020 08:44:00
== END 2020-02-26 01:17 | disposition home or self-care (01) ==
LOC: ER 20:32
DX: N12 Tubulo-interstitial nephritis, not specified as acute or chronic (principal); Z90.49 Acquired absence of other specified parts of digestive tract
CPT/HCPCS: 93005; 99284; 96361; 96375; 96365; 36415; 87086; 85025; 87088; 80053; 81001; 87186; 93010; J0696; J2405; J7040